=== PATIENT | female | born 1975 | race Caucasian/White ===

== ENCOUNTER → 2016-12-06 | Day surgery (SDC) | payer OTHER ==
[2016-12-06 08:37] LABS: HCT 34.3 % (37.0-47.0); HGB 10.5 g/dl (12.5-16.0); MCH 21.9 pg (25.0-31.0); MCHC 30.6 g/dL (32.0-36.0); MCV 71.6 fL (78.0-100.0); MPV 10.2 fL (6.0-9.5); RBC 4.79 M/uL (4.20-5.40); RDW 23.7 % (11.5-14.0); WBC 6.5 K/uL (4.0-10.5)
== END | disposition home or self-care (01) ==
LOC: FAS 08:18
PROVIDERS: Obstetrics & Gynecology
DX: N83.8 Other noninflammatory disorders of ovary, fallopian tube and broad ligament (principal); N92.0 Excessive and frequent menstruation with regular cycle; D50.9 Iron deficiency anemia, unspecified; Z98.890 Other specified postprocedural states; Z79.899 Other long term (current) drug therapy
CPT/HCPCS: 36415; 84703; 88305; J1100; J1170; J1885; J2405; J2704; J2710; J3010

== ENCOUNTER 2021-09-20 15:54 | Emergency (ER) | payer OTHER ==
[2021-09-20 16:56] LABS: BASOPHIL 0.5 % (0-2); EOSINOPHIL 1.1 % (0-5); HCT 40.3 % (37.0-47.0); HGB 13.4 g/dl (12.5-16.0); LYMPHOCYTE 28.2 % (15-48); MCHC 33.3 g/dL (32.0-36.0); MCV 90.2 fL (78.0-100.0); MONOCYTE 5.9 % (0-12); MPV 11.3 fL (6.0-9.5); NEUTROPHIL 63.8 % (41-80); NRBC 0; PLT 257 K/uL (150-400); RBC 4.47 M/uL (4.20-5.40); RDW 12.7 % (11.5-14.0); WBC 8.5 K/uL (4.0-10.5)
[2021-09-20 17:17] LABS: BUN 14 mg/dL (7-18); BUN/CREAT RATIO (CALC) 18.7 RATIO; CHLORIDE 102 mmol/L (98-107); CO2 (BICARBONATE) 28 mmol/L (21-32); CREATININE 0.75 mg/dL (0.51-0.95); GLUCOSE 96 mg/dL (74-106); POTASSIUM 3.7 mmol/L (3.5-5.1)
[2021-09-20 17:57] LABS: BILIRUBIN NEGATIVE (NEGATIVE); BLOOD 2+ Ery/uL (NEGATIVE); CLARITY CLEAR (CLEAR); COLOR YELLOW (YELLOW); GLUCOSE (U) NORMAL (NORMAL); LEUKOCYTES NEGATIVE Leu/uL (NEGATIVE); NITRITE NEGATIVE (NEGATIVE); PROTEIN NEGATIVE (NEGATIVE); UROBILINOGEN 0.2 mg/dL (0.2-1.0)
[2021-09-20 18:00] LABS: ECSTASY (MDMA) NEGATIVE (NEGATIVE); MARIJUANA (THC) NEGATIVE (NEGATIVE); METHADONE NEGATIVE (NEGATIVE); OPIATES NEGATIVE (NEGATIVE)
[2021-09-20 18:01] LABS: AMPHETAMINES NEGATIVE (NEGATIVE); BARBITURATES NEGATIVE (NEGATIVE); OXYCODONE NEGATIVE (NEGATIVE)
[2021-09-20 18:03] LABS: SQUAMOUS EPITHELIAL CELLS RARE; URINARY WBC RARE
[2021-09-20] MEDS ORDERED: MUCINEX D TABL1 EACH PO (19:40)
[2021-09-20] MEDS ORDERED: ONDANSETRON ODT4 MG PO (19:40)
[2021-09-20] MEDS ORDERED: ANTIVERT25 MG PO (19:40)
[2021-09-20] MEDS ORDERED: VIBRAMYCIN100 MG PO (19:40)
== END 2021-09-20 20:10 | disposition home or self-care (01) ==
LOC: FER 15:54
PROVIDERS: Nurse Practitioner Family
DX: J01.90 Acute sinusitis, unspecified (principal); H65.93 Unspecified nonsuppurative otitis media, bilateral; H83.09 Labyrinthitis, unspecified ear; R07.9 Chest pain, unspecified; Z88.0 Allergy status to penicillin; Z88.1 Allergy status to other antibiotic agents
CPT/HCPCS: 36415; 71045; 80048; 80305; 81001; 84484; 85025; 93005; J2270; J2405

== ENCOUNTER 2022-02-03 18:26 | Emergency (ER) | payer OTHER ==
[~2022-02-03 18:26] MED LIST: ANTIVERT25 MG PO; MUCINEX D TABL1 EACH PO; ONDANSETRON ODT4 MG PO; VIBRAMYCIN100 MG PO
[2022-02-03 20:46] LABS: BILIRUBIN NEGATIVE (NEGATIVE); BLOOD 2+ Ery/uL (NEGATIVE); CLARITY CLEAR (CLEAR); COLOR YELLOW (YELLOW); GLUCOSE (U) NORMAL (NORMAL); LEUKOCYTES NEGATIVE Leu/uL (NEGATIVE); NITRITE NEGATIVE (NEGATIVE); PROTEIN NEGATIVE (NEGATIVE); UROBILINOGEN 0.2 mg/dL (0.2-1.0)
[2022-02-03 20:54] LABS: BACTERIA TRACE
[2022-02-03 22:11] LABS: BASOPHIL 0.3 % (0-2); EOSINOPHIL 0.6 % (0-5); HCT 37.1 % (37.0-47.0); HGB 12.3 g/dl (12.5-16.0); MCHC 33.2 g/dL (32.0-36.0); MCV 90.5 fL (78.0-100.0); MONOCYTE 6.2 % (0-12); MPV 10.5 fL (6.0-9.5); NEUTROPHIL 67.5 % (41-80); NRBC 0; PLT 204 K/uL (150-400); RDW 12.7 % (11.5-14.0); WBC 9.3 K/uL (4.0-10.5)
[2022-02-03 22:32] LABS: ALBUMIN 3.5 g/dL (3.4-5.0); BILIRUBIN - TOTAL 0.4 mg/dL (0.2-1.0); BUN/CREAT RATIO (CALC) 17.9 RATIO; CREATININE 0.67 mg/dL (0.51-0.95); GLOBULIN (CALCULATION) 3.5 g/dL; POTASSIUM 3.4 mmol/L (3.5-5.1)
[2022-02-04] MEDS ORDERED: ONDANSETRON ODT4 MG PO (00:03)
[2022-02-04] MEDS ORDERED: NORCO 5-325 TA1 EACH PO (00:03)
== END 2022-02-04 00:18 | disposition home or self-care (01) ==
LOC: FER 18:26
PROVIDERS: Internal Medicine; Nurse Practitioner Family
DX: R10.31 Right lower quadrant pain (principal); R31.9 Hematuria, unspecified; Z88.1 Allergy status to other antibiotic agents; Z88.5 Allergy status to narcotic agent; Z28.311 Partially vaccinated for COVID-19
CPT/HCPCS: 36415; 80053; 81001; 83690; 84145; 85025; J1170